=== PATIENT | male | born 1970 | race Hispanic/Latino ===

== ENCOUNTER 2024-08-07 17:21 | Emergency (ER) | payer SELFPAY ==
[~2024-08-07 17:21] MED LIST: Iopamidol 370 76% 100 ML VIAL ONE
[2024-08-07 18:29] LABS: INR-International Normal Ratio 1.2; PTT 22.3 sec (22.0-33.0); Prothrombin Time 12.8 sec (9.5-12.1)
[2024-08-07 18:33] LABS: ALT (SGPT) 31 U/L (8-55); AST (SGOT) 61 U/L (5-34); Albumin 2.6 g/dL (3.5-5.0); Alkaline Phosphatase 72 U/L (40-110); Anion Gap 10 mmol/L (10-20); BUN (Urea Nitrogen) 14 mg/dL (8.4-25.7); Bilirubin, Total 0.3 mg/dL (0.2-1.2); Calc. Creatinine Clearance 0 mL/min (70-130); Calcium 8.3 mg/dL (7.8-10.44); Carbon Dioxide 22 mmol/L (22-29); Chloride 107 mmol/L (98-107); Estimated GFR 113; Globulin 4.1 g/dL (2.4-3.5); Glucose 100 mg/dL (70-105); Lipase 93 U/L (8-78); Potassium 3.9 mmol/L (3.5-5.1); Protein, Total 6.7 g/dL (6.0-8.3); Sodium 135 mmol/L (136-145)
[2024-08-07 18:44] LABS: Bilirubin Neg (Negative); Blood, Urine Negative (Negative); Clarity Clear (Clear); Glucose, Urine (Dipstick) Normal (Negative); Ketone, Urine Negative (Negative); Leukocyte Negative (Negative); Nitrite Negative (Negative); Protein, Urine (Dipstick) Negative (Neg-Trace); Specific Gravity, Urine 1.015 (1.005-1.030); Urobilinogen Normal mg/dL (Less than 2)
[2024-08-07 18:50] LABS: Bacteria/HPF None Seen HPF (None Seen); CAUTI Indications for Culture Pelvic or flank pain; RBC/HPF None Seen HPF (0-3); Squamous Epithelial None Seen HPF (0-3); WBC/HPF None Seen HPF (0-3)
[2024-08-07 18:51] LABS: Urine Culture Reflex No No
[2024-08-07 19:09] LABS: #Basophils 0.01 10x3/uL (0.0-0.2); #Eosinophils 0.07 10x3/uL (0.0-0.5); #Monocytes 0.81 10x3/uL (0.0-1.1); #Neutrophils 5.48 10x3/uL (1.5-8.4); %Basophils 0.1 % (0.0-2.0); %Eosinophils 0.9 % (0.0-6.0); %Lymphocytes 18.1 % (18.0-47.0); %Monocytes 10.3 % (0.0-10.0); Hematocrit 10.7 % (38.8-50.0); Mean Corpuscular Hemoglobin 19.6 pg (27.0-33.0); Mean Corpuscular Volume 69.9 fL (81.2-95.1); Mean Platelet Volume 10.9 fL (7.4-10.4); Platelet Count 186 10x3/uL (150-450); RBC Distribution Width 20.6 % (11.5-14.5); Red Blood Cell (RBC) Count 1.53 10x6/uL (4.32-5.72); White Blood Cell (WBC) Count 7.8 10x3/uL (3.5-10.5)
[2024-08-07] MEDS ORDERED: Pantoprazole 40 MG VIAL ONE ×2 (19:14→20:40)
[2024-08-07] MEDS ORDERED: cefTRIAXone (ROCEPHIN) 2 GM VIAL ONE (19:42)
[2024-08-07 20:00] LABS: Critical Call Chem Troponin I NUR.AEB AT 2000; Troponin I 0.349 ng/mL (< 0.028)
[2024-08-07 20:17] LABS: Hypochromia MARKED = >30 cells (100X) (0-5/hpf); Microcytosis MODERATE=15-30 cells (100X) (0-5/hpf)
[2024-08-07 20:18] LABS: Anisocytosis MODERATE=16-30 cells (100X) (0-5/hpf); Polychromasia SLIGHT = 2-3 cells (100X) (0-2/hpf)
[2024-08-07 20:19] LABS: Ovalocytes SLIGHT = 2-5 cells (100X) (0-1/hpf)
[2024-08-07 20:20] LABS: Large Platelets SLIGHT (None Seen); Platelet Adequacy Comment Appears Adequate
== END 2024-08-07 23:40 | disposition short-term general hospital (02) ==
LOC: CSHERS 17:21
DX: K92.2 Gastrointestinal hemorrhage, unspecified (principal); K82.9 Disease of gallbladder, unspecified; D64.9 Anemia, unspecified; Z55.0 Illiteracy and low-level literacy; Z75.8 Other problems related to medical facilities and other health care
CPT/HCPCS: 36430; 71260; 74174; 76705; 80053; 81001; 82274; 83605; 83690; 83880; 84484; 85025; 85610; 85730; 86850; 86900; 86901; 93005; 96361; 96365; 96374; 96375; J0696; J2470; P9016